=== PATIENT | female | born 1995 | race Caucasian/White ===

== ENCOUNTER 2021-06-21 05:40 | Emergency (ER) | payer SELFPAY ==
[~2021-06-21] VITALS: Ht 154.9 cm; Wt 74.0 kg
[2021-06-21] MEDS ORDERED: IBUPROFEN 600MG TABLET PO STA (06:06)
[2021-06-21] MEDS ORDERED: BACITRACIN ZINC OINT UDPKT TOP ONE (06:15)
[2021-06-21] MEDS ORDERED: LIDOCAINE HCL/EPINEPHRINE 1%-EPI 1:100,000 20 ML VIAL INFIL ONE (06:15)
[2021-06-21] MEDS ORDERED: TETANUS, DIPHTHERIA, PERTUSSIS VAC/PF 0.5ML (>10YR OLD) IM ONE (06:15)
[2021-06-21 08:09] VITALS: BP 138/76
[2021-06-21] MEDS ORDERED: IBUP-2029 MT (08:21)
[2021-06-21] MEDS ORDERED: CEPH500T MT (08:21)
== END 2021-06-21 08:37 | disposition home or self-care (01) ==
LOC: ER 05:40
DX: S01.81XA Laceration without foreign body of other part of head, initial encounter (principal); W18.39XA Other fall on same level, initial encounter; Y93.89 Activity, other specified; Y92.89 Other specified places as the place of occurrence of the external cause; Y99.8 Other external cause status
CPT/HCPCS: 12013; 70450; 90471; 90715; 99284; J3490

== ENCOUNTER 2021-07-02 13:05 | Emergency (ER) | payer MEDICAID ==
[~2021-07-02] VITALS: Ht 165.1 cm; Wt 99.0 kg
[~2021-07-02 13:05] MED LIST: CEPH500T MT; IBUP-2029 MT
[2021-07-02 13:07] VITALS: BP 121/72
== END 2021-07-02 14:00 | disposition home or self-care (01) ==
LOC: ER 13:05
DX: Z48.02 Encounter for removal of sutures (principal)
CPT/HCPCS: 99281; Z7610